=== PATIENT | male | born 2000 | race Caucasian/White ===

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

== ENCOUNTER 2018-03-12 00:10 | Emergency (ER) | payer BC ==
[~2018-03-12] VITALS: Ht 177.8 cm; Wt 71.5 kg
[2018-03-12 00:12] VITALS: TEMP 36.6; Ht 177.8 cm; Wt 71.5 kg
--- NOTE | 2018-03-12 00:40 | EMERGENCY ROOM VISIT NOTE ---
History Report prepared by Mario: Leighton Leavitt Under the Supervision of: Dr. Dayna Marshall D.O. First contact with patient: 00:26 Chief Complaint: HEAD INJURY (MINOR) Stated Complaint: POSSIBLE CONCUSSION,HEADACHE,NAUSEA History of Present Illness The patient is a 17 year old male who presents to the Emergency Room with complaints of a constant headache beginning today at 1999. The patient states that he hit his head on a billboard today when he was using a weed michael at work. He notes that when he hit his head, he "blacked out" and went down on his hands and knees. He reports that he did not lose consciousness and hit the ground. The patient states that he now has a lump on his head and he notes that he has had a headache since. He reports that he felt fine before hitting his head. He also complains of nausea and dizziness. The patient states that he became nauseous after hitting his head. He notes that his dizziness causes him to feel off balance, but he reports that he does not feel as though anything is spinning. He rates his pain as a 5/10. Per mom, the patient's left eye has not been dilating as much as his right eye. The patient denies any blurry/double vision, vomiting, numbness/tingling, neck pain, CP, arm pain, and abdominal pain. He notes that he does not have a previous history of head injuries and concussions. Source of History: patient Onset: today at 1999 Position: head Symptom Intensity: 5/10 Timing: constant Associated Symptoms: + nausea, No LOC, No neck pain, No chest pain, No vomiting, No abdominal pain Note: The patient also complains of dizziness. Per mom, the patient's left eye has not been dilating as much as his right eye. He denies any blurry/double vision, numbness/tingling, and arm pain. Review of Systems See HPI for pertinent positives & negatives. A total of 10 systems reviewed and were otherwise negative. Past Medical & Surgical Medical Problems: (1) No significant past medical history Surgical Problems: (1) No history of previous surgery Family History FH: diabetes mellitus FH: heart disease FH: hypertension FH: kidney disease Social History Smoking Status: Never Smoker Alcohol Use: none Marital Status: in relationship Housing Status: lives with family Occupation Status: student Current/Historical Medications No Active Prescriptions or Reported Meds Allergies Coded Allergies: No Known Allergies (Verified , 03/12/18) Physical Exam Vital Signs Date Time Temp Pulse Resp B/P (MAP) Pulse Ox O2 Delivery O2 Flow Rate FiO2 03/12/18 01:58 64 16 125/73 99 03/12/18 00:12 36.6 70 16 121/77 99 Room Air Physical Exam GENERAL: alert, well appearing, well nourished, no distress, non-toxic HEAD: Edema and contusion to the right parietal region. EYE EXAM: normal conjunctiva, PERRL and EOM's grossly intact OROPHARYNX: no exudate, no erythema, lips, buccal mucosa, and tongue normal and mucous membranes are moist NECK: supple, no nuchal rigidity, no adenopathy, non-tender LUNGS: Clear to auscultation. Normal chest wall mechanics HEART: no murmurs, S1 normal and S2 normal ABDOMEN: abdomen soft, non-tender, normo-active bowel sounds, no masses, no rebound or guarding. BACK: Back is symmetrical on inspection and there is no deformity, no midline tenderness, no CVA tenderness. SKIN: no rashes and no bruising UPPER EXTREMITIES: upper extremities are grossly normal. LOWER EXTREMITIES: No pitting edema. NEURO EXAM: Normal sensorium, cranial nerves II-XII grossly intact, normal speech, no gross weakness of arms, no gross weakness of legs. No drift. Finger to nose intact. Gross sensation intact. Heel to barr negative. Medical Decision & Procedures ER Provider Diagnostic Interpretation: Radiology results have been interpreted by the radiologist and reviewed by me. CT HEAD: No ICH, mass effect or edema. No skull fracture. Radiologist: Lenny Figueredo MD. Medications Administered Medications (Trade) Dose Ordered Sig/Michelle Route Start Time Stop Time Status Last Admin Dose Admin Ondansetron HCl (Zofran Odt) 4 mg ONE ONCE PO 03/12/18 01:15 03/12/18 01:16 DC 03/12/18 01:17 4 MG Ondansetron HCl (ZOFRAN ODT 4MG Home Pack) 1 homepack UD ONCE PO 03/12/18 01:45 03/12/18 01:46 DC 03/12/18 01:46 1 HOMEPACK ED Course 0026: The patient was evaluated in room C3. A complete history and physical exam was performed. 0115: Zofran Odt 4mg PO 0133: Upon reevaluation, the patient is feeling better. I discussed the findings and the treatment plan with the patient. He verbalizes agreement and understanding. The patient was discharged home. 0145: Ondansetron HCl 1 homepack PO Medical Decision Differential diagnosis: Etiologies such as concussion, contusion, fracture, subdural hematoma, epidural hematoma, intraparenchymal hemorrhage, as well as other traumatic pathologies were entertained. Patient well-appearing here despite trauma. I do not suspect any additional occult traumatic injuries. CT head negative, patient had a normal nonfocal neuro exam at bedside. Discussed with patient symptoms watch and return for, precautions regarding a concussion, follow-up with family doctor, he verbalized understanding was agreeable with plan. Patient ambulatory here with a steady gait, felt improved with Zofran and was tolerating p.o. Head Trauma GCS Score: 15 Medication Reconcilliation Current Medication List: was personally reviewed by me Blood Pressure Screening Patient's blood pressure: Normal blood pressure Blood pressure disposition: Did not require urgent referral Impression Primary Impression: Closed head injury Additional Impression: Concussion Scribe Attestation The scribe's documentation has been prepared under my direction and personally reviewed by me in its entirety. I confirm that the note above accurately reflects all work, treatment, procedures, and medical decision making performed by me. Departure Information Dispostion Home / Self-Care Prescriptions No Active Prescriptions or Reported Meds Referrals Connor Parker M.D. (PCP) Forms HOME CARE DOCUMENTATION FORM, IMPORTANT VISIT INFORMATION Patient Instructions My [facility] Additional Instructions Please drink plenty of water and stay well-hydrated. You may use the nausea medication as needed. If you develop worsening headaches, vomiting, numbness or tingling, vision changes, worsening dizziness, you have any other new concerns, please return the emergency room. You may use Tylenol or ibuprofen as needed for the headache in the interim. Please avoid any strenuous activity or activities that could put you at risk of another head injury. Please avoid prolonged electronic screen time including using your computer and television. You do not need to be on complete bedrest. He may eat normally, although you may not have a completely normal appetite for a day or so. Problem Qualifiers Primary Impression: Closed head injury Encounter type: initial encounter Qualified Codes: S09.90XA - Unspecified injury of head, initial encounter Additional Impression: Concussion Encounter type: initial encounter Loss of consciousness presence/duration: without LOC Qualified Codes: S06.0X0A - Concussion without loss of consciousness, initial encounter
[2018-03-12] MEDS ORDERED: ONDANSETRON 4MG OD TAB PO ONE (01:15)
[2018-03-12] MEDS ORDERED: ONDANSETRON HOME PACK 4MG OD TAB PO ONE (01:45)
[2018-03-12 01:58] VITALS: BP 125/73; PULSE 64; O2SAT 99
--- NOTE | 2018-03-12 06:53 | DIAGNOSTIC IMAGING REPORT ---
HEAD WITHOUT CONTRAST (CT) CT DOSE: 537.48 mGy.cm HISTORY: Trauma. Mental status change. head injury, dizzy, nausea TECHNIQUE: Multiaxial CT images of the head were performed without the use of intravenous contrast. A dose lowering technique was utilized adhering to the principles of ALARA. Comparison: None. Findings: The paranasal sinuses and mastoid air cells are clear. The calvarium and skull base are intact. The ventricles and sulci are within normal limits. There is no mass, hematoma, midline shift, or acute infarct. Impression: No acute intracranial abnormality. The above report was generated using voice recognition software. It may contain grammatical, syntax or spelling errors. Electronically signed by: Ramesh Gordillo M.D. 03/12/2018 6:52 AM Dictated Date/Time: 03/12/2018 6:51 AM
== END 2018-03-12 01:59 | disposition home or self-care (01) ==
LOC: C.EDB 00:11 → C.EDC 01:59
DX: S06.0X0A Concussion without loss of consciousness, initial encounter (principal); S00.03XA Contusion of scalp, initial encounter; W22.09XA Striking against other stationary object, initial encounter; Y99.0 Civilian activity done for income or pay; Y93.89 Activity, other specified; Z83.3 Family history of diabetes mellitus; Z82.49 Family history of ischemic heart disease and other diseases of the circulatory system; Z84.1 Family history of disorders of kidney and ureter